=== PATIENT | male | born 1970 | race Caucasian/White ===

== ENCOUNTER 2016-09-27 07:25 | Day surgery (SDC) | payer OTHER ==
[~2016-09-27] VITALS: Ht 168.9 cm; Wt 79.5 kg
[~2016-09-27 07:25] MED LIST: LIPITOR20 MG PO; ZYBAN 150 MG T150 MG PO
[2016-09-27 08:04] VITALS: BP 122/69
[2016-09-27] MEDS ORDERED: NORCO 5/3251 TABLET PO (11:06)
[2016-09-27 11:44] VITALS: BP 185/95
[2016-09-27 12:01] VITALS: BP 148/80
[2016-09-27 12:30] VITALS: BP 144/72
== END 2016-09-27 12:40 | disposition home or self-care (01) ==
LOC: SDC 07:25
PROC: 0YU50JZ Supplement Right Inguinal Region with Synthetic Substitute, Open Approach (ICD-10-PCS; principal; 2016-09-27)
DX: K40.90 Unilateral inguinal hernia, without obstruction or gangrene, not specified as recurrent (principal); E78.4 Other hyperlipidemia; R11.2 Nausea with vomiting, unspecified; E66.3 Overweight; Z68.27 Body mass index [BMI] 27.0-27.9, adult; F17.210 Nicotine dependence, cigarettes, uncomplicated; Z82.49 Family history of ischemic heart disease and other diseases of the circulatory system; Z83.3 Family history of diabetes mellitus
CPT/HCPCS: C1781; J0690; J2250; J3010; S0020

== ENCOUNTER 2016-10-13 04:07 | Inpatient (IN) | payer OTHER ==
[~2016-10-13] VITALS: Ht 170.2 cm; Wt 84.5 kg
[~2016-10-13 04:07] MED LIST changes: +NORCO 5/3251 TABLET PO
[2016-10-13 04:31] LABS: CREATININE 1.4 mg/dL (0.6-1.3); POTASSIUM 5.2 mEq/L (3.7-5.4)
[2016-10-13 04:55] LABS: HEMATOCRIT 50.1 % (38.0-50.0); MCH 30.5 PG (29.0-34.0); MCHC 31.7 G/DL (30.0-36.0); MEAN PLAT.VOLUME 9.7 uM^3 (9.0-12.4); PLATELET COUNT 258 K/uL (156-360); RBC DIS.WIDTH-CV 13.1 % (11.8-14.6); RBC DIS.WIDTH-SD 46.5 % (39-53); RED BLOOD COUNT 5.22 M/uL (4.00-5.50); WHITE BLOOD COUNT 17.5 K/uL (4.1-10.2)
[2016-10-13 04:58] LABS: BASE EXCESS -10.1 mEq/L (-3 to +3); BICARBONATE 21.2 mEq/L (22-26); CARBOXY HGB 5.5 % (0-5); METHEMOGLOBIN 1.1 % (0-1.5); PCO2 70 mm Hg (35-45); PO2 309 mm Hg (80-100)
[2016-10-13 04:59] LABS: COMMENTS - BLOOD GASES C+; SITE RR; pH 7.09 (7.35-7.45)
[2016-10-13 05:00] LABS: DEVICE VENT; FI02 100 %; MECHANICAL RATE 16 resp/min; MODE AC; PEEP 5 CM/H20; TIDAL VOLUME 500 ML; TOTAL RESP RATE 16 resp/min
[2016-10-13 05:02] LABS: CHLORIDE 100 mEq/L (99-109); GLUCOSE 290 mg/dL (70-99); POTASSIUM 5.4 mEq/L (3.7-5.4); SODIUM 136 mEq/L (136-147)
[2016-10-13 05:03] LABS: ANION GAP 26 MEQ/L (2-14)
[2016-10-13 05:05] LABS: SERUM ETHYL ALCOHOL < 10 mg/dL
[2016-10-13 05:06] LABS: GFR ESTIMATE (CALCULATED) 46 mL/min/; INTER. NORMALIZED RATIO 1.2; PROTHROMBIN TIME 12.1 (9.2-11.2); PTT 30.6 (25-32)
[2016-10-13 05:10] LABS: LIPASE 79 U/L (1.0-51.0); UREA NITROGEN (BUN) 9 mg/dL (9-23)
[2016-10-13 05:12] LABS: TROP-I INTERPRETATION POSITIVE; TROPONIN-I 0.79 ng/mL (0.0-0.30)
[2016-10-13 05:20] LABS: ADD MIUA? YES; BILIRUBIN NEGATIVE; BLOOD MODERATE; COLOR YELLOW ((YELLOW)); GLUCOSE (STRIP) >=500; KETONES NEGATIVE; LEUKOCYTES NEGATIVE; NITRITE NEGATIVE; PROTEIN (STRIP) 100; SPECIFIC GRAVITY 1.005 (1.000-1.030); UROBILINOGEN 0.2 MG/DL (0.2-1.0)
[2016-10-13 05:26] LABS: BACTERIA NONE SEEN /HPF; EPITHELIAL CELLS NONE SEEN /HPF; MUCUS TRACE /LPF; RED BLOOD CELLS 15-20 /HPF (0-5); UCUL ADDED? NO
[2016-10-13 05:30] LABS: ADD MEDTOX COMMENT Y; AMPHETAMINE NEGATIVE (500 ng/mL); BARBITURATES NEGATIVE (200 ng/mL); BENZODIAZEPINES NEGATIVE (150 ng/mL); COCAINE NEGATIVE (150 ng/mL); INTERNAL CONTROLS VALID? YES; METHADONE NEGATIVE (200 ng/mL); METHAMPHETAMINE NEGATIVE (500 ng/mL); OPIATES (MORPHINE) NEGATIVE (100 ng/mL); OXYCODONE NEGATIVE (100 ng/mL); PHENCYCLIDINE NEGATIVE (25 ng/mL); PROPOXYPHENE NEGATIVE (300 ng/mL); THC CANNABINOIDS PRESUMPTIVE POSITIVE (50 ng/mL); TRICYCLIC ANTIDEPRESSANTS NEGATIVE (300 ng/mL)
[2016-10-13 05:56] LABS: ABS NEUTROPHIL COUNT 8.5; EOSINOPHIL ABS CT 0.5; EOSINOPHILS 2.6 % (0-5.0); LYMPHOCYTES 44.7 % (15.0-45.0); SEG.NEUTROPHILS 48.3 % (46.0-76.0)
[2016-10-13 07:37] LABS: BASE EXCESS -5.3 mEq/L (-3 to +3); BICARBONATE 22.4 mEq/L (22-26); CARBOXY HGB 2.9 % (0-5); METHEMOGLOBIN 1.2 % (0-1.5)
[2016-10-13 07:38] LABS: COMMENTS - BLOOD GASES C+; DEVICE VENT; FI02 70 %; MECHANICAL RATE 22 resp/min; MODE AC; PCO2 50 mm Hg (35-45); PEEP 5 CM/H20; PO2 142 mm Hg (80-100); SITE LEFT ALINE; TIDAL VOLUME 500 ML; TOTAL RESP RATE 22 resp/min; pH 7.26 (7.35-7.45)
[2016-10-13 08:15] VITALS: BP 81/58; BP 94/64
[2016-10-13 08:30] VITALS: BP 78/53
[2016-10-13 09:00] VITALS: BP 113/81
[2016-10-13 09:24] LABS: POINT-OF-CARE METER ID UU13113748
[2016-10-13 09:42] LABS: MAGNESIUM 4.4 mg/dL (1.3-2.7)
[2016-10-13 09:45] LABS: TOTAL BILIRUBIN 0.5 mg/dL (0.0-1.0)
[2016-10-13 09:47] LABS: ALKALINE PHOSPHATASE 75 IU/L (3-129)
[2016-10-13 09:49] LABS: DIRECT BILIRUBIN 0.1 mg/dL (0.0-0.3)
[2016-10-13 10:05] LABS: METH RESISTANT S AUREUS PCR NEGATIVE (NEGATIVE)
[2016-10-13 10:15] LABS: PROBE CHECK PASS; SPECIMEN PROCESSING CONTROL PASS
[2016-10-13 11:25] LABS: BASE EXCESS -7.8 mEq/L (-3 to +3); CARBOXY HGB 2.7 % (0-5); METHEMOGLOBIN 1.6 % (0-1.5); pH 7.31 (7.35-7.45)
[2016-10-13 11:26] LABS: BICARBONATE 17.6 mEq/L (22-26); COMMENTS - BLOOD GASES C+ANA; DEVICE 840 PB; FI02 60 %; MECHANICAL RATE 22 resp/min; MODE AC; PCO2 35 mm Hg (35-45); PO2 84 mm Hg (80-100); SITE ALINE; TOTAL RESP RATE 22 resp/min
[2016-10-13 11:27] LABS: PEEP 5 CM/H20; TIDAL VOLUME 500 ML
[2016-10-13 12:39] LABS: EOSINOPHIL (%) 0.3 % (0-5); EOSINOPHIL COUNT 0.1 K/uL (0-0.3); IMMATURE GRANULOCYTE (%) 0.5 % (0.0-0.7); IMMATURE GRANULOCYTE COUNT 0.1 K/uL; INSTRUMENT ABS NEUTROPHIL CT 16.1 K/uL; MCH 30.9 PG (29.0-34.0); MCHC 33.6 G/DL (30.0-36.0); MEAN PLAT.VOLUME 9.4 uM^3 (9.0-12.4); MONOCYTE (%) 3.6 % (3-12); MONOCYTE COUNT 0.7 K/uL (0-0.8); NEUTROPHIL (%) 80.5 % (45-76); NEUTROPHIL COUNT 16.1 K/uL (1.8-6.4); PLATELET COUNT 275 K/uL (156-360); RBC DIS.WIDTH-CV 13.2 % (11.8-14.6); RBC DIS.WIDTH-SD 44.8 % (39-53); RED BLOOD COUNT 4.57 M/uL (4.00-5.50)
[2016-10-13 12:40] LABS: MCV 91.9 FL (86-99)
[2016-10-13 12:41] LABS: INTER. NORMALIZED RATIO 1.3; PROTHROMBIN TIME 13.2 (9.2-11.2); PTT 27.5 (25-32)
[2016-10-13 12:51] LABS: ANION GAP 15 MEQ/L (2-14); CHLORIDE 111 MEQ/L (99-109); MAGNESIUM 2.1 mg/dl (1.3-2.7); SAMPLE HEMOLYSIS CHECK 0; SAMPLE ICTERIC CHECK 0; SAMPLE LIPEMIA CHECK 0
[2016-10-13 12:57] LABS: GFR ESTIMATE (CALCULATED) 53 mL/min/; GLUCOSE 228 mg/dL (70-99); UREA NITROGEN (BUN) 15 mg/dL (9-23)
[2016-10-13 12:59] LABS: POTASSIUM 3.3 MEQ/L (3.7-5.4); SODIUM 143 MEQ/L (136-147)
[2016-10-13 13:21] LABS: TROP-I INTERPRETATION POSITIVE
[2016-10-13 15:03] LABS: BASE EXCESS -9.9 mEq/L (-3 to +3); BICARBONATE 17.2 mEq/L (22-26); CARBOXY HGB 2.1 % (0-5); METHEMOGLOBIN 1.6 % (0-1.5)
[2016-10-13 15:04] LABS: PCO2 41 mm Hg (35-45); PO2 59 mm Hg (80-100); pH 7.23 (7.35-7.45)
[2016-10-13 15:05] LABS: COMMENTS - BLOOD GASES C+ANA; DEVICE 840 PB; SITE ALINE
[2016-10-13 15:07] LABS: FI02 70 %; MECHANICAL RATE 22 resp/min; MODE AC; PEEP 5 CM/H20; TIDAL VOLUME 500 ML; TOTAL RESP RATE 22 resp/min
[2016-10-13 15:35] LABS: EOSINOPHIL (%) 0.1 % (0-5); HEMATOCRIT 39.3 % (38.0-50.0); IMMATURE GRANULOCYTE (%) 0.5 % (0.0-0.7); IMMATURE GRANULOCYTE COUNT 0.1 K/uL; INSTRUMENT ABS NEUTROPHIL CT 12.1 K/uL; LYMPHOCYTE COUNT 1.9 K/uL (1.0-2.8); MCH 30.3 PG (29.0-34.0); MCHC 33.3 G/DL (30.0-36.0); MCV 90.8 FL (86-99); MEAN PLAT.VOLUME 9.2 uM^3 (9.0-12.4); MONOCYTE (%) 2.3 % (3-12); MONOCYTE COUNT 0.3 K/uL (0-0.8); NEUTROPHIL (%) 83.6 % (45-76); NEUTROPHIL COUNT 12.1 K/uL (1.8-6.4); PLATELET COUNT 205 K/uL (156-360); RBC DIS.WIDTH-CV 13.1 % (11.8-14.6); RBC DIS.WIDTH-SD 43.6 % (39-53); RED BLOOD COUNT 4.33 M/uL (4.00-5.50); WHITE BLOOD COUNT 14.4 K/uL (4.1-10.2)
[2016-10-13 15:40] LABS: POINT-OF-CARE METER ID UU13113748
[2016-10-13 16:07] LABS: ANION GAP 15 MEQ/L (2-14); CHLORIDE 108 MEQ/L (99-109); GFR ESTIMATE (CALCULATED) 53 mL/min/; MAGNESIUM 1.8 mg/dl (1.3-2.7); POTASSIUM 2.7 MEQ/L (3.7-5.4); SAMPLE HEMOLYSIS CHECK 0; SAMPLE ICTERIC CHECK 0; SAMPLE LIPEMIA CHECK 0; SODIUM 146 MEQ/L (136-147); UREA NITROGEN (BUN) 16 mg/dL (9-23)
[2016-10-13 16:10] LABS: GLUCOSE 405 mg/dL (70-99)
[2016-10-13 16:20] LABS: INTER. NORMALIZED RATIO 1.7
[2016-10-13 16:26] LABS: TROP-I INTERPRETATION POSITIVE; TROPONIN-I 63.71 ng/mL (0.0-0.30)
[2016-10-13 16:33] LABS: PTT > 150 (25-32)
[2016-10-13 16:53] LABS: POINT-OF-CARE METER ID UU13113696
[2016-10-13 19:25] LABS: BASE EXCESS -7.9 mEq/L (-3 to +3); BICARBONATE 18.8 mEq/L (22-26); CARBOXY HGB 1.9 % (0-5); METHEMOGLOBIN 1.3 % (0-1.5); PCO2 42 mm Hg (35-45)
[2016-10-13 19:26] LABS: COMMENTS - BLOOD GASES C; DEVICE 840; FI02 100 %; MECHANICAL RATE 22 resp/min; MODE AC; PEEP 12 CM/H20; PO2 192 mm Hg (80-100); SITE LR ALINE; TIDAL VOLUME 500 ML; TOTAL RESP RATE 22 resp/min; pH 7.26 (7.35-7.45)
[2016-10-13 22:36] LABS: HEMATOCRIT 43.3 % (38.0-50.0); MCH 29.7 PG (29.0-34.0); MCHC 32.3 G/DL (30.0-36.0); MCV 91.9 FL (86-99); MEAN PLAT.VOLUME 9.2 uM^3 (9.0-12.4); PLATELET COUNT 211 K/uL (156-360); RBC DIS.WIDTH-CV 13.2 % (11.8-14.6); RBC DIS.WIDTH-SD 44.7 % (39-53); RED BLOOD COUNT 4.71 M/uL (4.00-5.50); WHITE BLOOD COUNT 8.5 K/uL (4.1-10.2)
[2016-10-13 23:20] LABS: INTER. NORMALIZED RATIO 1.3; PROTHROMBIN TIME 13.1 (9.2-11.2)
[2016-10-13 23:26] LABS: PTT 44.6 (25-32)
[2016-10-13 23:27] LABS: EOSINOPHIL (%) 0.7 % (0-5); EOSINOPHIL COUNT 0.1 K/uL (0-0.3); IMMATURE GRANULOCYTE (%) 0.1 % (0.0-0.7); INSTRUMENT ABS NEUTROPHIL CT 5.4 K/uL; LYMPHOCYTE COUNT 2.8 K/uL (1.0-2.8); MONOCYTE (%) 2.7 % (3-12); MONOCYTE COUNT 0.2 K/uL (0-0.8); NEUTROPHIL (%) 63.3 % (45-76); NEUTROPHIL COUNT 5.4 K/uL (1.8-6.4)
[2016-10-13 23:38] LABS: ANION GAP 11 MEQ/L (2-14); CHLORIDE 112 MEQ/L (99-109); GFR ESTIMATE (CALCULATED) 49 mL/min/; SAMPLE HEMOLYSIS CHECK 0; SAMPLE ICTERIC CHECK 0; SAMPLE LIPEMIA CHECK 0; SODIUM 146 MEQ/L (136-147); UREA NITROGEN (BUN) 16 mg/dL (9-23)
[2016-10-13 23:40] LABS: TROP-I INTERPRETATION POSITIVE
[2016-10-13 23:43] LABS: GLUCOSE 182 mg/dL (70-99)
[2016-10-13 23:45] LABS: MAGNESIUM 2.7 mg/dl (1.3-2.7); POTASSIUM 2.4 MEQ/L (3.7-5.4)
[2016-10-14] VITALS (19 sets, daily range): BP systolic 95–134; BP diastolic 60–92
[2016-10-14 01:17] LABS: BASE EXCESS -4.5 mEq/L (-3 to +3); BICARBONATE 21.7 mEq/L (22-26); CARBOXY HGB 1.8 % (0-5); COMMENTS - BLOOD GASES C+; DEVICE VENT; FI02 60 %; MECHANICAL RATE 22 resp/min; METHEMOGLOBIN 1.4 % (0-1.5); MODE AC; PCO2 43 mm Hg (35-45); PEEP 12 CM/H20; PO2 70 mm Hg (80-100); SITE A-LINE; TIDAL VOLUME 500 ML; TOTAL RESP RATE 22 resp/min; pH 7.31 (7.35-7.45)
[2016-10-14 05:17] LABS: HEMATOCRIT 40.9 % (38.0-50.0); MCH 29.8 PG (29.0-34.0); MCHC 32.8 G/DL (30.0-36.0); MCV 90.9 FL (86-99); RBC DIS.WIDTH-CV 13.3 % (11.8-14.6); RBC DIS.WIDTH-SD 44.2 % (39-53)
[2016-10-14 05:18] LABS: HEMATOCRIT 40.7 % (38.0-50.0); MCHC 33.2 G/DL (30.0-36.0); MCV 90.4 FL (86-99); RBC DIS.WIDTH-CV 13.3 % (11.8-14.6); RBC DIS.WIDTH-SD 43.8 % (39-53); WHITE BLOOD COUNT 9.1 K/uL (4.1-10.2)
[2016-10-14 05:28] LABS: INTER. NORMALIZED RATIO 1.4; PROTHROMBIN TIME 14.2 (9.2-11.2)
[2016-10-14 05:32] LABS: PTT 117.2 (25-32)
[2016-10-14 05:43] LABS: TROP-I INTERPRETATION POSITIVE; TROPONIN-I 42.93 ng/mL (0.0-0.30)
[2016-10-14 05:54] LABS: BASOPHIL COUNT 0.1 K/uL (0-0.1); EOSINOPHIL (%) 2.1 % (0-5); EOSINOPHIL COUNT 0.2 K/uL (0-0.3); IMMATURE GRANULOCYTE (%) 0.2 % (0.0-0.7); INSTRUMENT ABS NEUTROPHIL CT 5.4 K/uL; LYMPHOCYTE COUNT 3.1 K/uL (1.0-2.8); MONOCYTE (%) 3.3 % (3-12); MONOCYTE COUNT 0.3 K/uL (0-0.8); NEUTROPHIL (%) 59.6 % (45-76); NEUTROPHIL COUNT 5.4 K/uL (1.8-6.4); PLATELET CLUMPS PRESENT - PLATELET COUNT APPEARS ADQ.
[2016-10-14 06:02] LABS: ABS NEUTROPHIL COUNT 5.7; ATYPICAL LYMPHOCYTE 3.6 %; BASOPHILS 0.9 %; BURR CELLS 1+; EOSINOPHIL ABS CT 0.4; EOSINOPHILS 4.4 % (0-5.0); INSTRUMENT ABS NEUTROPHIL CT 5.4 K/uL; METAMYELOCYTES 0.9 %; MICROCYTOSIS 1+; POIKILOCYTOSIS 1+; SEG.NEUTROPHILS 38.4 % (46.0-76.0); SMUDGE CELLS 11.6; SPHEROCYTES 2+
[2016-10-14 06:03] LABS: ANION GAP 10 MEQ/L (2-14); CHLORIDE 116 MEQ/L (99-109); GFR ESTIMATE (CALCULATED) 53 mL/min/; POTASSIUM 2.7 MEQ/L (3.7-5.4); SAMPLE HEMOLYSIS CHECK 0; SAMPLE ICTERIC CHECK 0; SAMPLE LIPEMIA CHECK 0; SODIUM 147 MEQ/L (136-147); UREA NITROGEN (BUN) 17 mg/dL (9-23)
[2016-10-14 06:04] LABS: ALKALINE PHOSPHATASE 43 IU/L (3-129); DIRECT BILIRUBIN 0.4 mg/dL (0.0-0.3); TOTAL BILIRUBIN 0.8 MG/DL (0.0-1.0)
[2016-10-14 06:06] LABS: GLUCOSE 66 mg/dL (70-99); MAGNESIUM 2.1 mg/dl (1.3-2.7)
[2016-10-14 06:26] LABS: VANCOMYCIN, TROUGH 9.8 MCG/ML (10-20)
[2016-10-14 07:26] LABS: BASE EXCESS -5.2 mEq/L (-3 to +3); BICARBONATE 20.6 mEq/L (22-26); COMMENTS - BLOOD GASES C+; DEVICE 840; FI02 60 %; MECHANICAL RATE 22 resp/min; METHEMOGLOBIN 1.3 % (0-1.5); MODE A/C; PCO2 40 mm Hg (35-45); PEEP 8 CM/H20; PO2 77 mm Hg (80-100); SITE ALINE; TIDAL VOLUME 500 ML; TOTAL RESP RATE 22 resp/min; pH 7.32 (7.35-7.45)
[2016-10-14 09:32] LABS: HEMATOCRIT 40.6 % (38.0-50.0); MCH 31.2 PG (29.0-34.0); MCHC 34.5 G/DL (30.0-36.0); MCV 90.4 FL (86-99); MEAN PLAT.VOLUME 9.5 uM^3 (9.0-12.4); PLATELET COUNT 170 K/uL (156-360); RBC DIS.WIDTH-CV 13.5 % (11.8-14.6); RBC DIS.WIDTH-SD 44.8 % (39-53); RED BLOOD COUNT 4.49 M/uL (4.00-5.50); WHITE BLOOD COUNT 9.5 K/uL (4.1-10.2)
[2016-10-14 10:03] LABS: TROP-I INTERPRETATION POSITIVE; TROPONIN-I 24.47 ng/mL (0.0-0.30)
[2016-10-14 10:13] LABS: ANION GAP 12 MEQ/L (2-14); CHLORIDE 116 MEQ/L (99-109); GFR ESTIMATE (CALCULATED) 57 mL/min/; MAGNESIUM 1.9 mg/dl (1.3-2.7); SAMPLE HEMOLYSIS CHECK 0; SAMPLE ICTERIC CHECK 0; SAMPLE LIPEMIA CHECK 0; SODIUM 147 MEQ/L (136-147); UREA NITROGEN (BUN) 17 mg/dL (9-23)
[2016-10-14 10:14] LABS: CREATINE KINASE 1756 IU/L (1-294); GLUCOSE 84 mg/dL (70-99); POTASSIUM 3.4 MEQ/L (3.7-5.4)
[2016-10-14 10:28] LABS: BASOPHIL COUNT 0.1 K/uL (0-0.1); EOSINOPHIL (%) 2.6 % (0-5); EOSINOPHIL COUNT 0.3 K/uL (0-0.3); IMMATURE GRANULOCYTE (%) 0.2 % (0.0-0.7); INSTRUMENT ABS NEUTROPHIL CT 6.2 K/uL; LYMPHOCYTE COUNT 2.7 K/uL (1.0-2.8); MONOCYTE COUNT 0.3 K/uL (0-0.8); NEUTROPHIL (%) 65.1 % (45-76); NEUTROPHIL COUNT 6.2 K/uL (1.8-6.4)
[2016-10-14 12:51] LABS: POINT-OF-CARE METER ID UU13113696
[2016-10-14 12:55] LABS: BASE EXCESS -4.8 mEq/L (-3 to +3); BICARBONATE 20.5 mEq/L (22-26); CARBOXY HGB 1.8 % (0-5); COMMENTS - BLOOD GASES C+; DEVICE 840; FI02 60 %; MECHANICAL RATE 22 resp/min; METHEMOGLOBIN 1.7 % (0-1.5); MODE A/C; PCO2 38 mm Hg (35-45); PEEP 8 CM/H20; PO2 111 mm Hg (80-100); SITE ALINE; TIDAL VOLUME 500 ML; TOTAL RESP RATE 22 resp/min; pH 7.34 (7.35-7.45)
[2016-10-14 14:51] LABS: HEMATOCRIT 41.1 % (38.0-50.0); MCH 31.1 PG (29.0-34.0); MCHC 34.5 G/DL (30.0-36.0); MCV 89.9 FL (86-99); RBC DIS.WIDTH-CV 13.6 % (11.8-14.6); RBC DIS.WIDTH-SD 44.8 % (39-53); RED BLOOD COUNT 4.57 M/uL (4.00-5.50)
[2016-10-14 15:06] LABS: INTER. NORMALIZED RATIO 1.5; PROTHROMBIN TIME 15.4 (9.2-11.2)
[2016-10-14 15:07] LABS: PTT 41.8 (25-32)
[2016-10-14 15:14] LABS: TROP-I INTERPRETATION POSITIVE; TROPONIN-I 14.61 ng/mL (0.0-0.30)
[2016-10-14 15:31] LABS: ABS NEUTROPHIL COUNT 6.8; ANISOCYTOSIS 1+; ATYPICAL LYMPHOCYTE 4.4 %; BASOPHILS 0.9 %; EOSINOPHIL ABS CT 0; INSTRUMENT ABS NEUTROPHIL CT 7.5 K/uL; LYMPHOCYTES 28.3 % (15.0-45.0); METAMYELOCYTES 2.6 %; MICROCYTOSIS 1+; PLAT.SUFFICIENCY ADEQUATE; PLATELET CLUMPS PRESENT - PLATELET COUNT APPEARS ADQ.; PLATELET COUNT UNABLE TO REPORT K/uL (156-360)
[2016-10-14 15:32] LABS: ANION GAP 11 MEQ/L (2-14); CHLORIDE 116 MEQ/L (99-109); GFR ESTIMATE (CALCULATED) > 59 mL/min/; GLUCOSE 122 mg/dL (70-99); MAGNESIUM 1.7 mg/dl (1.3-2.7); POTASSIUM 3.2 MEQ/L (3.7-5.4); SAMPLE HEMOLYSIS CHECK 0; SAMPLE ICTERIC CHECK 0; SAMPLE LIPEMIA CHECK 0; SODIUM 149 MEQ/L (136-147); UREA NITROGEN (BUN) 16 mg/dL (9-23)
[2016-10-14 18:17] LABS: POINT-OF-CARE USER ID 606021424
[2016-10-14 21:06] LABS: HEMATOCRIT 41.7 % (38.0-50.0); MCH 29.7 PG (29.0-34.0); MCHC 33.1 G/DL (30.0-36.0); MCV 89.9 FL (86-99); MEAN PLAT.VOLUME 9.8 uM^3 (9.0-12.4); RBC DIS.WIDTH-CV 13.7 % (11.8-14.6); RBC DIS.WIDTH-SD 44.9 % (39-53); RED BLOOD COUNT 4.64 M/uL (4.00-5.50); WHITE BLOOD COUNT 12.3 K/uL (4.1-10.2)
[2016-10-14 21:15] LABS: PLATELET COUNT 176 K/uL (156-360)
[2016-10-14 21:21] LABS: INTER. NORMALIZED RATIO 1.6; PROTHROMBIN TIME 16.3 (9.2-11.2); PTT 34.4 (25-32)
[2016-10-14 21:30] LABS: TROP-I INTERPRETATION POSITIVE; TROPONIN-I 10.92 ng/mL (0.0-0.30)
[2016-10-14 21:31] LABS: ANION GAP 11 MEQ/L (2-14); CHLORIDE 118 MEQ/L (99-109); GFR ESTIMATE (CALCULATED) > 59 mL/min/; GLUCOSE 123 mg/dL (70-99); MAGNESIUM 1.7 mg/dl (1.3-2.7); POTASSIUM 3.4 MEQ/L (3.7-5.4); SAMPLE HEMOLYSIS CHECK 0; SAMPLE ICTERIC CHECK 0; SAMPLE LIPEMIA CHECK 0; SODIUM 151 MEQ/L (136-147); UREA NITROGEN (BUN) 14 mg/dL (9-23)
[2016-10-14 21:32] LABS: ANISOCYTOSIS 1+; BASOPHILS 0.9 %; BURR CELLS 1+; EOSINOPHIL ABS CT 0.4; EOSINOPHILS 3.5 % (0-5.0); INSTRUMENT ABS NEUTROPHIL CT 9.2 K/uL; LYMPHOCYTES 20.7 % (15.0-45.0); METAMYELOCYTES 1.7 %; SEG.NEUTROPHILS 42.2 % (46.0-76.0)
[2016-10-14 23:17] LABS: POINT-OF-CARE METER ID UU13113731
[2016-10-15] VITALS (23 sets, daily range): BP systolic 83–161; BP diastolic 49–82
[2016-10-15 02:03] LABS: POINT-OF-CARE METER ID UU14162636
[2016-10-15 03:56] LABS: HEMATOCRIT 40.5 % (38.0-50.0); MCHC 33.3 G/DL (30.0-36.0); MEAN PLAT.VOLUME 9.8 uM^3 (9.0-12.4); PLATELET COUNT 164 K/uL (156-360); RBC DIS.WIDTH-CV 13.6 % (11.8-14.6); WHITE BLOOD COUNT 13.2 K/uL (4.1-10.2)
[2016-10-15 03:57] LABS: BASE EXCESS -2.5 mEq/L (-3 to +3); BICARBONATE 23.7 mEq/L (22-26); CARBOXY HGB 1.9 % (0-5); METHEMOGLOBIN 1.5 % (0-1.5); pH 7.33 (7.35-7.45)
[2016-10-15 04:01] LABS: COMMENTS - BLOOD GASES C+; DEVICE VENT; MECHANICAL RATE 22 resp/min; MODE AC; PCO2 45 mm Hg (35-45); PEEP 8 CM/H20; PO2 73 mm Hg (80-100); TIDAL VOLUME 500 ML; TOTAL RESP RATE 22 resp/min
[2016-10-15 04:31] LABS: INTER. NORMALIZED RATIO 1.7; PROTHROMBIN TIME 17.5 (9.2-11.2)
[2016-10-15 04:33] LABS: POTASSIUM 3.8 mEq/L (3.7-5.4); SODIUM 154 mEq/L (136-147)
[2016-10-15 04:34] LABS: CHLORIDE 122 mEq/L (99-109)
[2016-10-15 04:35] LABS: GLUCOSE 122 mg/dL (70-99)
[2016-10-15 04:37] LABS: ANION GAP 10 MEQ/L (2-14)
[2016-10-15 04:39] LABS: GFR ESTIMATE (CALCULATED) 53 mL/min/
[2016-10-15 04:40] LABS: UREA NITROGEN (BUN) 13 mg/dL (9-23)
[2016-10-15 04:43] LABS: MAGNESIUM 1.8 mg/dL (1.3-2.7)
[2016-10-15 04:44] LABS: TROP-I INTERPRETATION POSITIVE
[2016-10-15 05:02] LABS: ANISOCYTOSIS 1+; ATYPICAL LYMPHOCYTE 3.5 %; BAND NEUTROPHILS 25.7 % (0-8.0); BASOPHILS 0.9 %; BURR CELLS 3+; EOSINOPHIL ABS CT 0.6; EOSINOPHILS 4.4 % (0-5.0); LYMPHOCYTES 13.3 % (15.0-45.0); METAMYELOCYTES 0.9 %; PLAT.SUFFICIENCY ADEQUATE; POIKILOCYTOSIS 2+; SEG.NEUTROPHILS 50.4 % (46.0-76.0); SPHEROCYTES 2+
[2016-10-15 06:38] LABS: BASE EXCESS -2.1 mEq/L (-3 to +3); BICARBONATE 22.3 mEq/L (22-26); CARBOXY HGB 1.4 % (0-5); METHEMOGLOBIN 1.3 % (0-1.5)
[2016-10-15 06:39] LABS: COMMENTS - BLOOD GASES C+; DEVICE 840; FI02 100 %; MECHANICAL RATE 24 resp/min; MODE AC; PCO2 36 mm Hg (35-45); PEEP 8 CM/H20; PO2 164 mm Hg (80-100); SITE ART LINE; TIDAL VOLUME 500 ML; TOTAL RESP RATE 24 resp/min
[2016-10-15 06:47] LABS: POINT-OF-CARE METER ID UU14162636
[2016-10-15 10:14] LABS: HEMATOCRIT 38.7 % (38.0-50.0); MCH 30.8 PG (29.0-34.0); MCHC 33.6 G/DL (30.0-36.0); MCV 91.7 FL (86-99); MEAN PLAT.VOLUME 10.1 uM^3 (9.0-12.4); PLATELET COUNT 162 K/uL (156-360); RBC DIS.WIDTH-CV 14.2 % (11.8-14.6); RBC DIS.WIDTH-SD 47.5 % (39-53); RED BLOOD COUNT 4.22 M/uL (4.00-5.50); WHITE BLOOD COUNT 13.9 K/uL (4.1-10.2)
[2016-10-15 10:28] LABS: INTER. NORMALIZED RATIO 1.6; PROTHROMBIN TIME 16.9 (9.2-11.2); PTT 36.8 (25-32)
[2016-10-15 10:44] LABS: ALKALINE PHOSPHATASE 47 IU/L (3-129); ANION GAP 9 MEQ/L (2-14); CHLORIDE 125 MEQ/L (99-109); DIRECT BILIRUBIN 0.6 mg/dL (0.0-0.3); GFR ESTIMATE (CALCULATED) 43 mL/min/; GLUCOSE 137 mg/dL (70-99); MAGNESIUM 1.8 mg/dl (1.3-2.7); POTASSIUM 3.8 MEQ/L (3.7-5.4); SAMPLE HEMOLYSIS CHECK 0; SAMPLE ICTERIC CHECK 0; SAMPLE LIPEMIA CHECK 0; SODIUM 160 MEQ/L (136-147); UREA NITROGEN (BUN) 11 mg/dL (9-23)
[2016-10-15 10:45] LABS: TROP-I INTERPRETATION POSITIVE; TROPONIN-I 10.27 ng/mL (0.0-0.30)
[2016-10-15 10:46] LABS: TOTAL BILIRUBIN 1.1 MG/DL (0.0-1.0)
[2016-10-15 10:55] LABS: ABS NEUTROPHIL COUNT 10.3; ATYPICAL LYMPHOCYTE 4.4 %; BAND NEUTROPHILS 19.5 % (0-8.0); BASOPHILS 0.9 %; BURR CELLS 1+; EOSINOPHIL ABS CT 0.4; EOSINOPHILS 2.6 % (0-5.0); INSTRUMENT ABS NEUTROPHIL CT 10.3 K/uL; LYMPHOCYTES 17.7 % (15.0-45.0); PLAT.SUFFICIENCY ADEQUATE; SEG.NEUTROPHILS 54.9 % (46.0-76.0); SMUDGE CELLS 6.2; TEAR DROP CELLS 1+
[2016-10-15 14:38] LABS: POINT-OF-CARE METER ID UU14162636
[2016-10-15 17:30] LABS: ADD MIUA? YES; BILIRUBIN NEGATIVE; BLOOD LARGE; COLOR YELLOW ((YELLOW)); GLUCOSE (STRIP) NEGATIVE; KETONES NEGATIVE; LEUKOCYTES NEGATIVE; NITRITE NEGATIVE; PROTEIN (STRIP) 100; SPECIFIC GRAVITY 1.015 (1.000-1.030); UROBILINOGEN 0.2 MG/DL (0.2-1.0)
[2016-10-15 17:44] LABS: BACTERIA RARE /HPF; EPITHELIAL CELLS RARE /HPF; MUCUS TRACE /LPF
[2016-10-15 18:13] LABS: BASE EXCESS 0.3 mEq/L (-3 to +3); BICARBONATE 25.4 mEq/L (22-26); pH 7.39 (7.35-7.45)
[2016-10-15 18:14] LABS: COMMENTS - BLOOD GASES C+; DEVICE VENT; PCO2 42 mm Hg (35-45); PO2 62 mm Hg (80-100); SITE ALINE
[2016-10-15 18:15] LABS: FI02 100 %; MECHANICAL RATE 24 resp/min; MODE AC; PEEP 10 CM/H20; TIDAL VOLUME 550 ML; TOTAL RESP RATE 24 resp/min
[2016-10-15 18:31] LABS: INTER. NORMALIZED RATIO 1.6; PROTHROMBIN TIME 16.9 (9.2-11.2); PTT 39.2 (25-32)
[2016-10-15 18:46] LABS: TROP-I INTERPRETATION POSITIVE; TROPONIN-I 7.71 ng/mL (0.0-0.30)
[2016-10-15 18:48] LABS: ABS NEUTROPHIL COUNT 8.3; ANISOCYTOSIS 1+; BASOPHILS 0.9 %; EOSINOPHIL ABS CT 0.2; EOSINOPHILS 1.8 % (0-5.0); HEMATOCRIT 33.4 % (38.0-50.0); HYPOCHROMASIA 1+; INSTRUMENT ABS NEUTROPHIL CT 7.3 K/uL; MCH 30.4 PG (29.0-34.0); MCHC 32.6 G/DL (30.0-36.0); MEAN PLAT.VOLUME 10.1 uM^3 (9.0-12.4); MICROCYTOSIS 1+; PLAT.SUFFICIENCY DECREASED; PLATELET COUNT 133 K/uL (156-360); RBC DIS.WIDTH-CV 14.3 % (11.8-14.6); RBC DIS.WIDTH-SD 49.1 % (39-53); RED BLOOD COUNT 3.59 M/uL (4.00-5.50); SEG.NEUTROPHILS 51.3 % (46.0-76.0); SMUDGE CELLS 9.7; WHITE BLOOD COUNT 11.2 K/uL (4.1-10.2)
[2016-10-15 18:52] LABS: ANION GAP 9 MEQ/L (2-14); CHLORIDE 125 MEQ/L (99-109); GFR ESTIMATE (CALCULATED) 46 mL/min/; GLUCOSE 132 mg/dL (70-99); POTASSIUM 3.9 MEQ/L (3.7-5.4); SAMPLE HEMOLYSIS CHECK 0; SAMPLE ICTERIC CHECK 0; SAMPLE LIPEMIA CHECK 0; SODIUM 158 MEQ/L (136-147); UREA NITROGEN (BUN) 10 mg/dL (9-23)
[2016-10-15 18:58] LABS: MAGNESIUM 2.1 mg/dl (1.3-2.7)
[2016-10-15 20:59] LABS: ALKALINE PHOSPHATASE 45 IU/L (3-129); AMYLASE 55 IU/L (1-118); CREATINE KINASE 3955 IU/L (1-294); DIRECT BILIRUBIN 0.7 mg/dL (0.0-0.3); LIPASE 9 U/L (1.0-51.0); TOTAL BILIRUBIN 1.3 MG/DL (0.0-1.0); TOTAL CK 3955 IU/L (1-294)
[2016-10-15 21:07] LABS: CK-MB 94.7 ng/mL (0.0-4.9)
[2016-10-15 21:17] LABS: POINT-OF-CARE METER ID UU14162636
[2016-10-16] VITALS (21 sets, daily range): BP systolic 80–124; BP diastolic 59–84
[2016-10-16 00:18] LABS: POINT-OF-CARE METER ID UU14162636
[2016-10-16 00:29] LABS: BASE EXCESS -2.5 mEq/L (-3 to +3); BICARBONATE 22.5 mEq/L (22-26); CARBOXY HGB 1.6 % (0-5); COMMENTS - BLOOD GASES C+A+; DEVICE VENT; FI02 40 %; MECHANICAL RATE 10 resp/min; METHEMOGLOBIN 1.1 % (0-1.5); MODE AC PC; PCO2 39 mm Hg (35-45); PO2 57 mm Hg (80-100); PRESSURE CONTROL VENTILATION 17 CM H20; SITE ALINE; TOTAL RESP RATE 10 resp/min; pH 7.37 (7.35-7.45)
[2016-10-16 00:30] LABS: PEEP 5 CM/H20
[2016-10-16 00:46] LABS: AMYLASE 102 IU/L (1-118); INTER. NORMALIZED RATIO 1.7; MAGNESIUM 1.8 mg/dL (1.3-2.7); PROTHROMBIN TIME 17.7 (9.2-11.2); PTT 51.2 (25-32)
[2016-10-16 00:54] LABS: LIPASE 6 U/L (1.0-51.0)
[2016-10-16 00:55] LABS: MCH 30.1 PG (29.0-34.0); MCHC 32.4 G/DL (30.0-36.0); MCV 92.9 FL (86-99); RBC DIS.WIDTH-CV 14.4 % (11.8-14.6); RBC DIS.WIDTH-SD 49.1 % (39-53); RED BLOOD COUNT 3.12 M/uL (4.00-5.50); WHITE BLOOD COUNT 3.9 K/uL (4.1-10.2)
[2016-10-16 00:57] LABS: ALKALINE PHOSPHATASE 37 IU/L (3-129); DIRECT BILIRUBIN 1.1 mg/dL (0.0-0.3); TOTAL BILIRUBIN 1.7 mg/dL (0.0-1.0)
[2016-10-16 01:00] LABS: CK-MB 55.5 ng/mL (0.0-4.9)
[2016-10-16 01:06] LABS: TOTAL CK 4627 IU/L (1-294)
[2016-10-16 01:09] LABS: CREATINE KINASE 4627 IU/L (1-294)
[2016-10-16 01:09] LABS: TROP-I INTERPRETATION POSITIVE
[2016-10-16 02:03] LABS: ABS NEUTROPHIL COUNT 3.4; BAND NEUTROPHILS 3.5 % (0-8.0); EOSINOPHIL ABS CT 0; INSTRUMENT ABS NEUTROPHIL CT 2.9 K/uL; LYMPHOCYTES 12.4 % (15.0-45.0); MEAN PLAT.VOLUME 10.3 uM^3 (9.0-12.4); PLAT.SUFFICIENCY DECREASED
[2016-10-16 02:06] LABS: PLATELET COUNT 88 K/uL (156-360); SEG.NEUTROPHILS 83.2 % (46.0-76.0)
[2016-10-16 04:34] LABS: CHLORIDE 124 mEq/L (99-109); SODIUM 154 mEq/L (136-147)
[2016-10-16 04:35] LABS: GLUCOSE 170 mg/dL (70-99)
[2016-10-16 04:36] LABS: POTASSIUM 4.7 mEq/L (3.7-5.4)
[2016-10-16 04:37] LABS: ANION GAP 11 MEQ/L (2-14)
[2016-10-16 04:39] LABS: GFR ESTIMATE (CALCULATED) 46 mL/min/
[2016-10-16 04:40] LABS: UREA NITROGEN (BUN) 13 mg/dL (9-23)
[2016-10-16 05:31] LABS: HEMATOCRIT 27.1 % (38.0-50.0); MCH 31.3 PG (29.0-34.0); MCHC 33.2 G/DL (30.0-36.0); MCV 94.1 FL (86-99); MEAN PLAT.VOLUME 10.6 uM^3 (9.0-12.4); PLATELET COUNT 77 K/uL (156-360); RBC DIS.WIDTH-CV 14.6 % (11.8-14.6); RBC DIS.WIDTH-SD 50.7 % (39-53); RED BLOOD COUNT 2.88 M/uL (4.00-5.50); WHITE BLOOD COUNT 4.9 K/uL (4.1-10.2)
[2016-10-16 05:52] LABS: TROP-I INTERPRETATION POSITIVE; TROPONIN-I 3.75 ng/mL (0.0-0.30)
[2016-10-16 06:00] LABS: INTER. NORMALIZED RATIO 1.7; PROTHROMBIN TIME 18.1 (9.2-11.2); PTT 49.7 (25-32)
[2016-10-16 06:40] LABS: ALKALINE PHOSPHATASE 33 IU/L (3-129); ANION GAP 12 MEQ/L (2-14); CHLORIDE 122 MEQ/L (99-109); DIRECT BILIRUBIN 0.9 mg/dL (0.0-0.3); GAMMA-GT 32 IU/L (4-73); GFR ESTIMATE (CALCULATED) 46 mL/min/; GLUCOSE 200 mg/dL (70-99); LIPASE 6 U/L (1.0-51.0); MAGNESIUM 1.9 mg/dl (1.3-2.7); POTASSIUM 4.7 MEQ/L (3.7-5.4); SAMPLE HEMOLYSIS CHECK 0; SAMPLE ICTERIC CHECK 0; SAMPLE LIPEMIA CHECK 0; SODIUM 154 MEQ/L (136-147); TOTAL CK 3997 IU/L (1-294); UREA NITROGEN (BUN) 16 mg/dL (9-23)
[2016-10-16 06:46] LABS: AMYLASE 77 IU/L (1-118); CREATINE KINASE 3997 IU/L (1-294); TOTAL BILIRUBIN 1.8 MG/DL (0.0-1.0)
[2016-10-16 06:57] LABS: CK-MB 56.4 ng/mL (0.0-4.9)
[2016-10-16 07:15] LABS: ABS NEUTROPHIL COUNT 3.7; ANISOCYTOSIS 1+; ATYPICAL LYMPHOCYTE 1.7 %; BAND NEUTROPHILS 10.4 % (0-8.0); EOSINOPHIL ABS CT 0; EOSINOPHILS 0.9 % (0-5.0); INSTRUMENT ABS NEUTROPHIL CT 3.2 K/uL; LYMPHOCYTES 15.7 % (15.0-45.0); METAMYELOCYTES 3.5 %; PLAT.SUFFICIENCY DECREASED; SEG.NEUTROPHILS 65.2 % (46.0-76.0)
[2016-10-16 08:20] LABS: Estimated Average Glucose 134 mg/dL (70-123); HEMOGLOBIN A1c (GLYCOHEMOGLOB) 6.3 % HGB (Below 5.7)
[2016-10-16 09:32] LABS: BASE EXCESS -1.3 mEq/L (-3 to +3); BICARBONATE 24.3 mEq/L (22-26); COMMENTS - BLOOD GASES A+C+; DEVICE 840; FI02 40 %; INSPIRATION TIME 0.6 seconds; MECHANICAL RATE 10 resp/min; METHEMOGLOBIN 1.2 % (0-1.5); MODE BILEVEL; PCO2 44 mm Hg (35-45); PO2 74 mm Hg (80-100); PRESSURE CONTROL VENTILATION 27 CM H20; SITE ALINE; TOTAL RESP RATE 10 resp/min; pH 7.35 (7.35-7.45)
[2016-10-16 09:40] LABS: POINT-OF-CARE METER ID UU14162636
[2016-10-16 09:45] LABS: ADD MIUA? YES; BILIRUBIN NEGATIVE; BLOOD LARGE; COLOR AMBER ((YELLOW)); GLUCOSE (STRIP) NEGATIVE; KETONES NEGATIVE; LEUKOCYTES NEGATIVE; NITRITE NEGATIVE; PROTEIN (STRIP) 100; SPECIFIC GRAVITY 1.021 (1.000-1.030); UROBILINOGEN 0.2 MG/DL (0.2-1.0)
[2016-10-16 10:18] LABS: BACTERIA 1+ /HPF; CASTS PRESENT /LPF; CRYSTALS PRESENT; EPITHELIAL CELLS RARE /HPF; MUCUS RARE /LPF; RED BLOOD CELLS 0-5 /HPF (0-5); WHITE BLOOD CELLS NONE SEEN /HPF (0-5)
[2016-10-16 10:19] LABS: AMORPHOUS URATES CRYSTALS 1+; COARSE GRANULAR CASTS 0-5 /LPF
[2016-10-16 11:13] LABS: HEMATOCRIT 26.9 % (38.0-50.0); MCH 30.9 PG (29.0-34.0); MCHC 32.7 G/DL (30.0-36.0); MCV 94.4 FL (86-99); PLATELET COUNT 87 K/uL (156-360); RBC DIS.WIDTH-CV 14.6 % (11.8-14.6); RBC DIS.WIDTH-SD 50.7 % (39-53); RED BLOOD COUNT 2.85 M/uL (4.00-5.50); WHITE BLOOD COUNT 5.9 K/uL (4.1-10.2)
[2016-10-16 11:22] LABS: BASE EXCESS -1.2 mEq/L (-3 to +3); BICARBONATE 24.3 mEq/L (22-26); CARBOXY HGB 1.7 % (0-5); DEVICE 840; FI02 40 %; INSPIRATION TIME 0.6 seconds; MECHANICAL RATE 10 resp/min; METHEMOGLOBIN 1.4 % (0-1.5); MODE BILEVEL; PCO2 43 mm Hg (35-45); PO2 69 mm Hg (80-100); PRESSURE CONTROL VENTILATION 27 CM H20; SITE ALINE; TOTAL RESP RATE 10 resp/min; pH 7.36 (7.35-7.45)
[2016-10-16 11:45] LABS: INTER. NORMALIZED RATIO 1.7; PROTHROMBIN TIME 17.1 (9.2-11.2); PTT 48.6 (25-32)
[2016-10-16 12:09] LABS: TROP-I INTERPRETATION POSITIVE; TROPONIN-I 3.33 ng/mL (0.0-0.30)
[2016-10-16 12:25] LABS: ABS NEUTROPHIL COUNT 5.3; EOSINOPHIL ABS CT 0; INSTRUMENT ABS NEUTROPHIL CT 4.5 K/uL; PLAT.SUFFICIENCY DECREASED
[2016-10-16 12:27] LABS: POINT-OF-CARE METER ID UU14162636
[2016-10-16 12:54] LABS: ALKALINE PHOSPHATASE 31 IU/L (3-129); AMYLASE 80 IU/L (1-118); ANION GAP 14 MEQ/L (2-14); CHLORIDE 120 MEQ/L (99-109); DIRECT BILIRUBIN 0.7 mg/dL (0.0-0.3); GAMMA-GT 31 IU/L (4-73); GFR ESTIMATE (CALCULATED) 43 mL/min/; GLUCOSE 231 mg/dL (70-99); LIPASE 6 U/L (1.0-51.0); POTASSIUM 4.2 MEQ/L (3.7-5.4); SAMPLE HEMOLYSIS CHECK 0; SAMPLE ICTERIC CHECK 0; SAMPLE LIPEMIA CHECK 0; SODIUM 157 MEQ/L (136-147); TOTAL BILIRUBIN 1.8 MG/DL (0.0-1.0); TOTAL CK 3938 IU/L (1-294); UREA NITROGEN (BUN) 19 mg/dL (9-23)
[2016-10-16 12:55] LABS: CREATINE KINASE 3938 IU/L (1-294); MAGNESIUM 2.3 mg/dl (1.3-2.7)
[2016-10-16 13:00] LABS: CK-MB 51.8 ng/mL (0.0-4.9)
[2016-10-16 13:04] LABS: POINT-OF-CARE METER ID UU14174217
[2016-10-16 14:13] LABS: POINT-OF-CARE METER ID UU14174217
[2016-10-16 15:15] LABS: POINT-OF-CARE METER ID UU14174217
[2016-10-16 16:25] LABS: POINT-OF-CARE METER ID UU14174217
[2016-10-16 17:22] LABS: BASE EXCESS -0.6 mEq/L (-3 to +3); BICARBONATE 24.9 mEq/L (22-26); CARBOXY HGB 1.8 % (0-5); METHEMOGLOBIN 1.1 % (0-1.5); PCO2 44 mm Hg (35-45); PO2 62 mm Hg (80-100); pH 7.36 (7.35-7.45)
[2016-10-16 17:23] LABS: DEVICE 840; FI02 40 %; MECHANICAL RATE 10 resp/min; MODE BILEVEL; PRESSURE CONTROL VENTILATION 29 CM H20; SITE ALINE; TOTAL RESP RATE 10 resp/min
[2016-10-16 17:28] LABS: POINT-OF-CARE METER ID UU14174217
[2016-10-16 17:50] LABS: POINT-OF-CARE METER ID UU14174217
[2016-10-16 18:06] LABS: POINT-OF-CARE METER ID UU14174217
[2016-10-16 18:17] LABS: HEMATOCRIT 26.7 % (38.0-50.0); MCHC 31.8 G/DL (30.0-36.0); MCV 94.3 FL (86-99); MEAN PLAT.VOLUME 11.4 uM^3 (9.0-12.4); NRBC (%) 0.3 /100 WBC (0-0); PLATELET COUNT 70 K/uL (156-360); RBC DIS.WIDTH-CV 14.8 % (11.8-14.6); RBC DIS.WIDTH-SD 51.3 % (39-53); RED BLOOD COUNT 2.83 M/uL (4.00-5.50); WHITE BLOOD COUNT 6.3 K/uL (4.1-10.2)
[2016-10-16 18:44] LABS: INTER. NORMALIZED RATIO 1.7; PROTHROMBIN TIME 17.2 (9.2-11.2); PTT 48.3 (25-32)
[2016-10-16 18:57] LABS: TROP-I INTERPRETATION POSITIVE; TROPONIN-I 2.68 ng/mL (0.0-0.30)
[2016-10-16 19:08] LABS: ALKALINE PHOSPHATASE 30 IU/L (3-129); AMYLASE 81 IU/L (1-118); ANION GAP 12 MEQ/L (2-14); CHLORIDE 120 MEQ/L (99-109); DIRECT BILIRUBIN 0.8 mg/dL (0.0-0.3); GAMMA-GT 31 IU/L (4-73); GFR ESTIMATE (CALCULATED) 38 mL/min/; GLUCOSE 171 mg/dL (70-99); LIPASE 7 U/L (1.0-51.0); MAGNESIUM 2.4 mg/dl (1.3-2.7); POTASSIUM 3.5 MEQ/L (3.7-5.4); SAMPLE HEMOLYSIS CHECK 0; SAMPLE ICTERIC CHECK 0; SAMPLE LIPEMIA CHECK 0; SODIUM 156 MEQ/L (136-147); TOTAL BILIRUBIN 1.6 MG/DL (0.0-1.0); TOTAL CK 3311 IU/L (1-294); UREA NITROGEN (BUN) 23 mg/dL (9-23)
[2016-10-16 19:09] LABS: CREATINE KINASE 3311 IU/L (1-294)
[2016-10-16 19:31] LABS: POINT-OF-CARE METER ID UU14174217
[2016-10-16 19:32] LABS: CK-MB 36.9 ng/mL (0.0-4.9)
[2016-10-16 20:18] LABS: ABS NEUTROPHIL COUNT 5.2; ANISOCYTOSIS 1+; ATYPICAL LYMPHOCYTE 0.9 %; BAND NEUTROPHILS 25.4 % (0-8.0); EOSINOPHIL ABS CT 0; INSTRUMENT ABS NEUTROPHIL CT 4.8 K/uL; LYMPHOCYTES 10.5 % (15.0-45.0); METAMYELOCYTES 5.3 %; NUCLEATED RBC'S 1.8; SEG.NEUTROPHILS 57.9 % (46.0-76.0)
[2016-10-16 20:31] LABS: POINT-OF-CARE METER ID UU14174217
[2016-10-16 21:51] LABS: POINT-OF-CARE METER ID UU14174217; POINT-OF-CARE USER ID 609231305
[2016-10-16 22:27] LABS: POINT-OF-CARE METER ID UU14174217; POINT-OF-CARE USER ID 609231305
[2016-10-16 23:38] LABS: POINT-OF-CARE METER ID UU14174217
[2016-10-17] VITALS (9 sets, daily range): BP systolic 128–161; BP diastolic 83–105
[2016-10-17 00:31] LABS: POINT-OF-CARE METER ID UU14174217
[2016-10-17 00:31] LABS: ADD MIUA? YES; BILIRUBIN NEGATIVE; BLOOD LARGE; COLOR YELLOW ((YELLOW)); GLUCOSE (STRIP) NEGATIVE; KETONES NEGATIVE; LEUKOCYTES NEGATIVE; NITRITE NEGATIVE; PROTEIN (STRIP) 30; UROBILINOGEN 0.2 MG/DL (0.2-1.0)
[2016-10-17 00:38] LABS: INTER. NORMALIZED RATIO 1.8; PROTHROMBIN TIME 18.5 (9.2-11.2)
[2016-10-17 00:52] LABS: CASTS PRESENT /LPF
[2016-10-17 00:53] LABS: COARSE GRANULAR CASTS 0-5 /LPF; FINE GRANULAR CASTS 0-5 /LPF
[2016-10-17 00:55] LABS: CRYSTALS PRESENT
[2016-10-17 00:56] LABS: RED BLOOD CELLS 0-5 /HPF (0-5)
[2016-10-17 00:57] LABS: AMORPHOUS URATES CRYSTALS 2+; BACTERIA 2+ /HPF; EPITHELIAL CELLS RARE /HPF; MUCUS 1+ /LPF
[2016-10-17 01:04] LABS: CK-MB 27.4 ng/mL (0.0-4.9)
[2016-10-17 01:14] LABS: TROP-I INTERPRETATION POSITIVE; TROPONIN-I 2.71 ng/mL (0.0-0.30)
[2016-10-17 01:26] LABS: BASE EXCESS -1.2 mEq/L (-3 to +3); BICARBONATE 23.6 mEq/L (22-26); CARBOXY HGB 1.8 % (0-5); COMMENTS - BLOOD GASES C+; DEVICE 840 VENT; FI02 40 %; MECHANICAL RATE 10 resp/min; METHEMOGLOBIN 1.2 % (0-1.5); MODE BILEVEL; PCO2 39 mm Hg (35-45); PO2 68 mm Hg (80-100); PRESSURE CONTROL VENTILATION 29 CM H20; SITE ALINE; TOTAL RESP RATE 10 resp/min; pH 7.39 (7.35-7.45)
[2016-10-17 01:27] LABS: PEEP 0 CM/H20; PRES. SUPPORT 0 CM/H2O
[2016-10-17 01:50] LABS: POINT-OF-CARE METER ID UU14162636; POINT-OF-CARE USER ID 609231305
[2016-10-17 01:56] LABS: ABS NEUTROPHIL COUNT 5.1; ANISOCYTOSIS 1+; EOSINOPHIL ABS CT 0; HEMATOCRIT 24.3 % (38.0-50.0); INSTRUMENT ABS NEUTROPHIL CT 4.8 K/uL; LYMPHOCYTES 8.7 % (15.0-45.0); MCH 30.3 PG (29.0-34.0); MCHC 32.5 G/DL (30.0-36.0); MCV 93.1 FL (86-99); MEAN PLAT.VOLUME 11.4 uM^3 (9.0-12.4); MICROCYTOSIS 1+; NRBC (%) 0.3 /100 WBC (0-0); OVALOCYTES 1+; PLAT.SUFFICIENCY DECREASED; PLATELET COUNT 61 K/uL (156-360); RBC DIS.WIDTH-CV 14.8 % (11.8-14.6); RBC DIS.WIDTH-SD 50.2 % (39-53); RED BLOOD COUNT 2.61 M/uL (4.00-5.50); WHITE BLOOD COUNT 5.8 K/uL (4.1-10.2)
[2016-10-17 02:19] LABS: ALKALINE PHOSPHATASE 29 IU/L (3-129); ANION GAP 15 MEQ/L (2-14); CHLORIDE 118 MEQ/L (99-109); DIRECT BILIRUBIN 0.9 mg/dL (0.0-0.3); GAMMA-GT 27 IU/L (4-73); GLUCOSE 129 mg/dL (70-99); MAGNESIUM 2.3 mg/dl (1.3-2.7); POTASSIUM 3.9 MEQ/L (3.7-5.4); SAMPLE HEMOLYSIS CHECK 0; SAMPLE ICTERIC CHECK 0; SAMPLE LIPEMIA CHECK 0; SODIUM 153 MEQ/L (136-147); TOTAL BILIRUBIN 1.9 MG/DL (0.0-1.0); TOTAL CK 2772 IU/L (1-294); UREA NITROGEN (BUN) 27 mg/dL (9-23)
[2016-10-17 02:21] LABS: CREATINE KINASE 2772 IU/L (1-294); GFR ESTIMATE (CALCULATED) 29 mL/min/
[2016-10-17 02:37] LABS: POINT-OF-CARE METER ID UU14162636
[2016-10-17 02:48] LABS: BAND NEUTROPHILS 5.2 % (0-8.0); SEG.NEUTROPHILS 83.5 % (46.0-76.0)
[2016-10-17 03:36] LABS: POINT-OF-CARE METER ID UU14162636
[2016-10-17 05:29] LABS: POINT-OF-CARE METER ID UU14162636
[2016-10-17 05:38] LABS: AMYLASE 69 IU/L (1-118); LIPASE 7 U/L (1.0-51.0)
[2016-10-17 06:19] LABS: HEMATOCRIT 25.4 % (38.0-50.0); MCH 30.1 PG (29.0-34.0); MCHC 32.3 G/DL (30.0-36.0); MCV 93.4 FL (86-99); MEAN PLAT.VOLUME 11.5 uM^3 (9.0-12.4); NRBC (%) 0.6 /100 WBC (0-0); PLATELET COUNT 71 K/uL (156-360); RBC DIS.WIDTH-CV 14.9 % (11.8-14.6); RBC DIS.WIDTH-SD 50.8 % (39-53); RED BLOOD COUNT 2.72 M/uL (4.00-5.50); WHITE BLOOD COUNT 7.2 K/uL (4.1-10.2)
[2016-10-17 06:21] LABS: BASE EXCESS -0.4 mEq/L (-3 to +3); BICARBONATE 24.9 mEq/L (22-26); CARBOXY HGB 1.9 % (0-5); COMMENTS - BLOOD GASES C+; DEVICE 840 VENT; FI02 40 %; MECHANICAL RATE 10 resp/min; METHEMOGLOBIN 1.3 % (0-1.5); MODE BILEVEL; PCO2 43 mm Hg (35-45); PEEP 0 CM/H20; PO2 69 mm Hg (80-100); PRES. SUPPORT 0 CM/H2O; PRESSURE CONTROL VENTILATION 29 CM H20; SITE ALINE; TOTAL RESP RATE 10 resp/min; pH 7.37 (7.35-7.45)
[2016-10-17 06:32] LABS: INTER. NORMALIZED RATIO 1.4; PROTHROMBIN TIME 14.7 (9.2-11.2); PTT 42.8 (25-32)
[2016-10-17 07:09] LABS: TROP-I INTERPRETATION POSITIVE
[2016-10-17 07:12] LABS: EOSINOPHIL (%) 0 % (0-5); IMMATURE GRANULOCYTE (%) 0.6 % (0.0-0.7); INSTRUMENT ABS NEUTROPHIL CT 6.1 K/uL; LYMPHOCYTE COUNT 0.7 K/uL (1.0-2.8); MONOCYTE (%) 4.7 % (3-12); MONOCYTE COUNT 0.3 K/uL (0-0.8); NEUTROPHIL (%) 84.4 % (45-76); NEUTROPHIL COUNT 6.1 K/uL (1.8-6.4)
[2016-10-17 07:29] LABS: POINT-OF-CARE METER ID UU14162636
[2016-10-17 07:56] LABS: ALKALINE PHOSPHATASE 30 IU/L (3-129); AMYLASE 64 IU/L (1-118); ANION GAP 13 MEQ/L (2-14); CHLORIDE 116 MEQ/L (99-109); DIRECT BILIRUBIN 0.9 mg/dL (0.0-0.3); GAMMA-GT 28 IU/L (4-73); GFR ESTIMATE (CALCULATED) 25 mL/min/; GLUCOSE 146 mg/dL (70-99); LIPASE 7 U/L (1.0-51.0); MAGNESIUM 2.2 mg/dl (1.3-2.7); SAMPLE HEMOLYSIS CHECK 0; SAMPLE ICTERIC CHECK 0; SAMPLE LIPEMIA CHECK 0; SODIUM 151 MEQ/L (136-147); TOTAL BILIRUBIN 1.9 MG/DL (0.0-1.0); TOTAL CK 2625 IU/L (1-294); UREA NITROGEN (BUN) 33 mg/dL (9-23)
[2016-10-17 07:58] LABS: CREATINE KINASE 2625 IU/L (1-294)
[2016-10-17 08:00] LABS: CK-MB 20.7 ng/mL (0.0-4.9)
[2016-10-17 09:26] LABS: POINT-OF-CARE METER ID UU14162636
== END 2016-10-17 10:12 | DRG 216 ==
LOC: EME 04:07 → 4WEST 06:54 → EDOF 06:54 → 4WEST 06:54
PROVIDERS: Emergency Medicine; Internal Medicine Nephrology; Obstetrics & Gynecology
PROC: 5A1955Z Respiratory Ventilation, Greater than 96 Consecutive Hours (ICD-10-PCS; principal; 2016-10-13)
PROC: B2111ZZ Fluoroscopy of Multiple Coronary Arteries using Low Osmolar Contrast (ICD-10-PCS; principal; 2016-10-13)
PROC: 5A0 Extracorporeal or Systemic Assistance and Performance, Physiological Systems, Assistance (ICD-10-PCS; principal; 2016-10-13)
PROC: 0BH17EZ Insertion of Endotracheal Airway into Trachea, Via Natural or Artificial Opening (ICD-10-PCS; principal; 2016-10-13)
PROC: 02HV33Z Insertion of Infusion Device into Superior Vena Cava, Percutaneous Approach (ICD-10-PCS; principal; 2016-10-13)
PROC: 4A023N7 Measurement of Cardiac Sampling and Pressure, Left Heart, Percutaneous Approach (ICD-10-PCS; principal; 2016-10-13)
PROC: B2151ZZ Fluoroscopy of Left Heart using Low Osmolar Contrast (ICD-10-PCS; principal; 2016-10-13)
DX: I21.3 ST elevation (STEMI) myocardial infarction of unspecified site (principal); I46.9 Cardiac arrest, cause unspecified; J96.01 Acute respiratory failure with hypoxia; R57.0 Cardiogenic shock; I49.01 Ventricular fibrillation; Z66 Do not resuscitate; I42.9 Cardiomyopathy, unspecified; I25.10 Atherosclerotic heart disease of native coronary artery without angina pectoris; I70.203 Unspecified atherosclerosis of native arteries of extremities, bilateral legs; E78.5 Hyperlipidemia, unspecified; G93.6 Cerebral edema; G93.1 Anoxic brain damage, not elsewhere classified; R40.20 Unspecified coma; E87.5 Hyperkalemia; F12.10 Cannabis abuse, uncomplicated; R73.9 Hyperglycemia, unspecified; E87.2 Acidosis; R40.2430 Glasgow coma scale score 3-8, unspecified time; I70.0 Atherosclerosis of aorta; E83.39 Other disorders of phosphorus metabolism; J98.11 Atelectasis; G47.33 Obstructive sleep apnea (adult) (pediatric); E87.6 Hypokalemia; E87.0 Hyperosmolality and hypernatremia; I47.2 Ventricular tachycardia; F17.200 Nicotine dependence, unspecified, uncomplicated; N17.9 Acute kidney failure, unspecified; J69.0 Pneumonitis due to inhalation of food and vomit
CPT/HCPCS: 36600; 36620; 70450; 71010; 71275; 74177; 78606; 80047; 80048; 80048 91; 80053; 80076; 80202; 81003; 82150; 82248; 82310; 82330; 82550; 82550 91; 82553; 82803; 82948; 82977; 83036; 83605; 83690; 83735; 83930; 83935; 84100; 84484; 84999; 85025; 85025 91; 85347; 85610; 85730; 86900; 86901; 87040; 87070; 87086; 87205; 87641; 93005; 93306; 94002; 94003; 94640 76; 95819; 99202; 99281; 99285; A9539; C1769; C1887; C1894; G0480; J0171; J0461; J0610; J1250; J1644; J1815; J1940; J2250; J2310; J2405; J2543; J2930; J3370; J3430; J3475; J3480; J7030; J7040; J7050; J7070; J7120; P9045; P9047; S0028